=== PATIENT | female | born 1985 | race Caucasian/White ===

== ENCOUNTER 2021-10-07 19:00 | Outpatient (CLI) | payer BC, SELFPAY ==
--- NOTE | 2021-10-20 08:20 | W.PM.SLEEP ---
Sleep Study Details Details Interpreting Provider: Garret Stock MD Date of Sleep Study: 10/07/21 Sleep Study Details: STUDY TYPE:? Home sleep study ? BMI:? 23.4 ORDERING PROVIDER:? Milton INDICATION:? Concerns about sleep apnea ? SLEEP SUMMARY:? Monitor time 437.9 minutes RESPIRATORY SUMMARY:? AHI is 7.8, supine 6.7, prone 12.0, left 10.7, right 7.9, low oxygen was 89. PERIODIC LIMB MOVEMENTS OF SLEEP:? Not applicable CARDIAC:? Range 52 to 96, mean 61.1, snore summary 3.1% IMPRESSION:? Mild obstructive sleep apnea with no significant positional dependency. RECOMMENDATION: Treatment options include AutoSet CPAP at a pressure of 4-17, dental appliance and/or airway expansion surgery.
--- NOTE | 2021-10-27 08:58 | W.PM.SLEEP ---
Sleep Study Details Details Interpreting Provider: Garret Stock MD Date of Sleep Study: 10/07/21 Sleep Study Details: STUDY TYPE:? Home sleep study ? BMI:? 23.4 ORDERING PROVIDER:? Milton INDICATION:? Concerns about sleep apnea ? SLEEP SUMMARY:? Monitor time 437.9 minutes RESPIRATORY SUMMARY:? AHI is 7.8 supine AHI 6.7 prone 12.0, left lateral 10.7, right lateral 38.2. Low oxygen was 89% snore summary was 3% CARDIAC:? Cardiac range 52 to 96, mean 61.1 IMPRESSION:? This study demonstrates mild obstructive sleep apnea. Depending on patient's symptoms treatment could include AutoSet CPAP at a pressure of 4-17, dental appliance, and/or airway expansion surgery. RECOMMENDATION: See above
== END 2021-10-07 19:01 | disposition home or self-care (01) ==
PROVIDERS: Visit Provider Otolaryngology
DX: G47.33 Obstructive sleep apnea (adult) (pediatric) (principal)
CPT/HCPCS: 95806